=== PATIENT | male | born 1955 | race Hispanic/Latino ===

== ENCOUNTER 2017-12-26 14:41 | Outpatient (CLI) | payer BC, OTHER ==
[~2017-12-26 14:41] MED LIST: Gadobenate Dimeglumine 529 MG/1 ML (20ML VIAL) ONE
[2017-12-26 15:28] LABS: Estimated GFR-MDRD - POC Greater than 90
--- NOTE | 2017-12-27 15:54 | MRI ---
MRI PELVIS WITH AND WITHOUT CONTRAST: (Prostate protocol) Date: 12/26/17 HISTORY: Elevated PSA. COMPARISON: None. The last biopsy seen on the patient's medical record are all benign biopsies from 2014. TECHNIQUE: Multiplanar, multisequence MRI pelvis performed prior to and after the intravenous administration of contrast using prostate protocol. The exam was reviewed at an independent 3D workstation. FINDINGS: Prostate: The prostate measures 5.1 x 4.8 x 6.2 cm, for a volume of 74 mL. Peripheral Zone: There are no abnormal areas of diffusion restriction of the peripheral zone. Transitional Zone: There is a total of 4 regions of interest: JOSEFINA 1 is within the peripheral zone, volume of 1.2 mL, measuring 1.3 x 0.0 x 1.1 cm. The base is in t he mid gland at 9 o'clock. JOSEFINA 2 is within the left transitional zone, 3 o'clock, measuring 1.2 x 0.7 cm, for a volume of 0.62 m L. JOSEFINA 3 is within the right transitional zone, at the mid gland, at 11 o'clock, measuring 0.9 x 0.6 x 0 .7 cm. JOSEFINA 4 is within the transitional zone at the base, 6-7 o'clock, measuring 1.7 x 1.2 x 0.7 cm. Neurovascular Bundles: Intact. Seminal Vesicles: Intact. Urinary Bladder: Intact. On the T1-weighted imaging sequence, there are no abnormal areas of marrow signal loss to suggest met astatic disease. Intrapelvic Soft Tissues: Unremarkable. IMPRESSION: PI-RADS 5: Highly Likely (Clinically significant prostate cancer is highly likely to be present.) Th ere is extensive multifocal tumor throughout the transitional zone. The regions of interest are marke d on the DynaCAD study. No evidence for extraprostatic extension, neurovascular bundle invasion, loc al regional adenopathy, or osseous metastatic disease. POS: [facility]
== END 2017-12-26 14:42 | disposition home or self-care (01) ==
LOC: TBSIIMAG 14:41
PROVIDERS: ATTEND Urology
DX: R97.20 Elevated prostate specific antigen [PSA] (principal); D49.59 Neoplasm of unspecified behavior of other genitourinary organ
CPT/HCPCS: 72197; 82565; A9579

== ENCOUNTER 2018-01-23 11:44 | Outpatient (CLI) | payer BC ==
--- NOTE | 2018-01-23 13:25 | RAD ---
CHEST TWO VIEWS: History: Pre op. Comparison: None. FINDINGS: Lungs are clear. No pneumothorax or effusion. Cardiac silhouette and mediastinal contours are within normal limits. IMPRESSION: No acute intrathoracic abnormality. POS: [facility]
[2018-01-23 13:26] LABS: Hemoglobin 15.8 g/dL (14.0-18.0); Mean Corpuscular HGB CONC 33.2 g/dL (32.0-36.0); Mean Corpuscular Volume 93.2 fL (78.0-98.0); Mean Platelet Volume 9.4 fL (7.4-10.4); Platelet Count 270 thou/uL (130-400); RBC Distribution Width 12.2 % (11.5-14.5); Red Blood Cell (RBC) Count 5.09 mill/uL (4.70-6.10)
[2018-01-23 13:28] LABS: Bilirubin Negative (Negative); Blood, Urine Negative (Negative); Clarity CLEAR (Clear); Glucose, Urine (Dipstick) Negative (Negative); Leukocyte Negative (Negative); Nitrite Negative (Negative); Protein, Urine (Dipstick) Negative (Neg-Trace); Specific Gravity, Urine 1.003 (1.002-1.036); Urobilinogen 0.2 mg/dL (0.2-1.0)
[2018-01-23 13:30] LABS: PTT 28.8 SEC (22.9-36.1)
[2018-01-23 13:31] LABS: Bacteria/HPF None Seen HPF (None Seen); Hyaline Casts/LPF 0-3 HYALINE CAST LPF (0-3 Hyaline); RBC/HPF 0-3 HPF (0-3); Squamous Epithelial None Seen HPF (0-3); WBC/HPF None Seen HPF (0-3)
[2018-01-23 13:49] LABS: Anion Gap 17 mmol/L (10-20); BUN (Urea Nitrogen) 12 mg/dL (8.4-25.7); Calc. Creatinine Clearance 0 mL/min (70-130); Calcium 10.2 mg/dL (7.8-10.44); Carbon Dioxide 22 mmol/L (22-29); Chloride 105 mmol/L (98-107); Estimated GFR-MDRD Greater than 90; Glucose 90 mg/dL (70-105); Potassium 5.2 mmol/L (3.5-5.1); Sodium 139 mmol/L (136-145)
--- NOTE | 2018-01-24 07:54 | EKG ---
Test Reason : Blood Pressure : / mmHG Vent. Rate : 084 BPM Atrial Rate : 084 BPM P-R Int : 158 ms QRS Dur : 082 ms QT Int : 348 ms P-R-T Axes : 062 048 025 degrees QTc Int : 411 ms Normal sinus rhythm Normal ECG No previous ECGs available Confirmed by SHE KAISER ([id number]) on 01/24/2018 7:54:21 AM Referred By: Germain Valdes Confirmed By:SHE KAISER
== END 2018-01-23 11:45 | disposition home or self-care (01) ==
LOC: LABBT 11:44
PROVIDERS: ATTEND Urology
DX: Z01.818 Encounter for other preprocedural examination (principal); R97.20 Elevated prostate specific antigen [PSA]
CPT/HCPCS: 71046; 80048; 81001; 85027; 85610; 85730; 93005; 93010

== ENCOUNTER 2018-02-07 08:22 | Day surgery (SDC) | payer BC ==
[2018-01-23 12:12] VITALS: BMI 25.7
[2018-02-07] MEDS ORDERED: MEROPENEM 1 GM/50 ML 1 GM in Premix Bag 1 BAG IVPB SCH (08:45)
[2018-02-07] MEDS ORDERED: Fentanyl 100 MCG/2 ML VIAL ONE (11:30)
[2018-02-07] MEDS ORDERED: Lidocaine 1% (PF) 30 ML VIAL ONE (11:38)
--- NOTE | 2018-02-07 13:52 | OP ---
DATE OF SERVICE: 02/07/2018 PREOPERATIVE DIAGNOSES: 1. Mr. Vigil is a 62-year-old male with history of elevated PSA, status post [address] Saenz in the past. Status post saturation biopsy [address] Saenz. Pathology at that time demonstrating right mid-grade high prostatic intraepithelial neoplasia. 2. Persistent elevated PSA of 18 despite Avodart. 3. Recent MRI demonstrating 4 regions of interest. POSTOPERATIVE DIAGNOSES: 1. Mr. Vigil is a 62-year-old male with history of elevated PSA, status post [address] Saenz in the past. Status post saturation biopsy [address] Saenz. Pathology at that time demonstrating right mid-grade high prostatic intraepithelial neoplasia. 2. Persistent elevated PSA of 18 despite Avodart. 3. Recent MRI demonstrating 4 regions of interest. PROCEDURES: MRI UroNav fusion biopsy. Standard 12 core, plus target biopsy of 4 regions of interest. SURGEON: Shaunna Kay D.O. ANESTHESIA: LMA. COMPLICATIONS: None apparent. DISPOSITION: To recovery room in stable condition. 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 As noted above, he had 3 prior biopsies in which he underwent saturation biopsy 2014 demonstrating no evidence of malignancy, volume 90 grams; however, one focus of high-grade PIN. He presented with a PSA of 12 with baseline PSA variable from 10-13. I did initiate him on Avodart 08/2017 due to significant enlargement of prostate on CT and then a prior ultrasound volume of 90 grams. After Avodart was initiated, PSA did not decrease; however, increased to 18. As I had concern regarding compensated PSA on 5 alpha reductase inhibitor, I informed the patient to proceed with MRI fusion biopsy. MRI of the pelvis with routine admit demonstrated approximately 74 gram prostate, there was a component of intravesical median lobe, and four regions of interest. He presents today for MRI fusion biopsy. Risks and complications of the procedure was reviewed with him in detail including, but not limited to, bleeding, pain, infection, injury to adjacent organs, urosepsis. I informed him regarding possibility of secondary procedure due to protracted bleeding. Moreover, ongoing need for surveillance despite negative malignancy if none found was reviewed with him in detail. DESCRIPTION OF THE PROCEDURE: After an informed consent was signed, the patient was taken to the operating room. The patient was placed in supine position and LMA anesthesia was administered. Broad-spectrum antibiotics were provided with meropenem based on Cipro rectal swab. Therefore, meropenem was provided. He has been provided Augmentin one day prior to prostate biopsy based on Cipro resistance. Patient was then placed in left lateral decubitus position and using end-firing transrectal ultrasound probe, we performed a standard volume study. His urethral length measured 5.1 with a 5.4, height of 4.1 for a volume of 61 grams. At this time, we performed an MRI fusion of the regions of interest with the ultrasound. we obtained specimen from the 4 regions of interest. I obtained 3 specimens from region of ROI1, 3 from ROI2, 2 from ROI3 and ROI4. Subsequently, we then performed a 12-standard core uneventfully. He tolerated the procedure well and transported to the recovery room in stable condition. His MARGUERITE intraoperatively demonstrated no discrete nodularity of concern. He will follow up with me in 2-3 weeks to review pathology. He is discharged with Augmentin 500 mg 1 p.o. b.i.d. x7 days, Colace 100 mg 1 p.o. b.i.d. p.r.n. He is instructed to continue his Avodart, Flomax. I also encouraged him to take Flomax b.i.d. until followup appointment as I do anticipate postoperative swelling of his prostate. Everett catheter immediately postop as there was some blood at the meatus which can be anticipated. There was no significant blood clots within the bladder itself. Therefore, Everett catheter was removed. He is to be discharged after he voids on his own. If unable to void, indwelling urethral Everett catheter will be placed. SHINE
[2018-02-07] MEDS ORDERED: Phenazopyridine HCl 97.5 MG TABLET ONE (14:21)
[2018-02-07] MEDS ORDERED: Tamsulosin HCl 0.4 MG CAP ONE (15:10)
[2018-02-07] MEDS ORDERED: PHENYLEPHRINE-NS 100 MCG/ML 10 ML SYRINGE ONE (17:24)
[2018-02-07] MEDS ORDERED: ePHEDrine/0.9% NaCl/PF SYRINGE 50 mg/10 ml ONE (17:24)
[2018-02-07] MEDS ORDERED: PROPOFOL 200 MG/20 ML VIAL ONE (17:24)
== END 2018-02-07 16:22 | disposition home or self-care (01) ==
LOC: SDC 08:22
PROVIDERS: ATTEND Urology
PROC: 0VB03ZX Excision of Prostate, Percutaneous Approach, Diagnostic (ICD-10-PCS; principal; 2018-02-07)
DX: N41.1 Chronic prostatitis (principal); N42.89 Other specified disorders of prostate; N40.1 Benign prostatic hyperplasia with lower urinary tract symptoms; R35.1 Nocturia; N52.9 Male erectile dysfunction, unspecified; E78.5 Hyperlipidemia, unspecified; I10 Essential (primary) hypertension; F32.9 Major depressive disorder, single episode, unspecified; Z79.899 Other long term (current) drug therapy; Z88.8 Allergy status to other drugs, medicaments and biological substances; Z98.890 Other specified postprocedural states
CPT/HCPCS: 51798; 88305; J2001; J2185; J2704; J3010

== ENCOUNTER 2018-07-18 12:48 | Outpatient (CLI) | payer BC ==
--- NOTE | 2018-07-18 13:28 | ULT ---
Exam: Testicular ultrasound HISTORY: Right testicular swelling COMPARISON: None TECHNIQUE: Sagittal and transverse imaging of the left and right hemiscrotum are performed. Testicula r Doppler is performed with grayscale, color-flow, Doppler imaging and spectral waveform analysis. FINDINGS: Right hemiscrotum: Testicle: Homogeneous echotexture. No intratesticular masses. Right testicle measurements: 4.6 x 2.3 x 3.3 cm Right epididymis: There appears to be a 0.5 x 0.5 x 0.6 cm fantasma epididymal cysts. Right epididymis measurements: 1.0 x 1.7. 0.5 cm x 0.3 cm extra-articular testicular isoechoic focus. Hydrocele: Complex fluid in the right hemiscrotum. Left hemiscrotum: Left testicle: Homogeneous echotexture. No intratesticular masses. Left testicle measurements: 2.8 x 2.7 x 5.1 cm Left epididymis: Normal echotexture. Left epididymis measurements:1.2 x 0.8 x 0.6 centimeters Hydrocele: Small simple hydrocele is present. Testicular Doppler: There is symmetric vascular flow to the left and right testicle. . IMPRESSION: 1. Complex right sided hydrocele. Small simple left-sided hydrocele. 2. Right epididymal cysts. Extratesticular echogenic focus, nonspecific. 3. No evidence of intratesticular mass. However, there is a isoechoic structure adjacent to the right testicle of uncertain significance and etiology.
== END 2018-07-18 12:49 | disposition home or self-care (01) ==
LOC: BICULT 12:48
PROVIDERS: ATTEND Urology
DX: N50.89 Other specified disorders of the male genital organs (principal); N43.3 Hydrocele, unspecified; N50.3 Cyst of epididymis; R93.811 Abnormal radiologic findings on diagnostic imaging of right testicle
CPT/HCPCS: 76870; 93976

== ENCOUNTER 2019-04-05 12:20 | Outpatient (CLI) | payer BC ==
--- NOTE | 2019-04-05 13:01 | ULT ---
US Renal Bilateral STANDARD: 04/05/2019 12:00 AM CLINICAL HISTORY: Nocturia. STUDY: Renal ultrasound COMPARISON: None. FINDINGS: Right kidney: Echogenicity: Normal. Masses/cysts: Anechoic cysts measuring up to 1.7 cm in size. Hydronephrosis: None. Calcifications: None. Length: 9.8 cm Left kidney: Echogenicity: Normal. Masses/cysts: Small cyst measuring 7 mm in size. Hydronephrosis: None. Calcifications: None. Length: 10.3 cm Limited visualization of the urinary bladder is unremarkable. IMPRESSION: Bilateral renal cysts
== END 2019-04-05 12:21 | disposition home or self-care (01) ==
LOC: BICULT 12:20
PROVIDERS: ATTEND Urology
DX: N43.3 Hydrocele, unspecified (principal); R35.1 Nocturia; N28.1 Cyst of kidney, acquired; Z87.440 Personal history of urinary (tract) infections
CPT/HCPCS: 76770

== ENCOUNTER 2020-11-09 09:22 | Outpatient (CLI) | payer BC ==
[2020-03-06 09:39] LABS: Bilirubin Neg (Negative); Blood, Urine Negative (Negative); Clarity Clear (Clear); Glucose, Urine (Dipstick) Normal (Negative); Ketone, Urine 5 mg/dL (Negative); Leukocyte Negative (Negative); Nitrite Negative (Negative); Protein, Urine (Dipstick) 30 mg/dl (Neg-Trace); Urobilinogen Normal mg/dL (Less than 2)
[2020-03-06 10:01] LABS: Hemoglobin 15.5 g/dL (14.0-18.0); Mean Corpuscular HGB CONC 33.1 G/DL (32.0-36.0); Mean Corpuscular Hemoglobin 30.4 PG (27.0-33.0); Mean Corpuscular Volume 91.8 fl (80.0-100.0); Mean Platelet Volume 10.8 fl (7.4-10.4); Platelet Count 225 10x3/uL (130-400); RBC Distribution Width 12.8 % (11.5-14.5); White Blood Cell (WBC) Count 5.9 10x3/uL (4.5-11.0)
[2020-03-06 10:08] LABS: ALT (SGPT) 29 U/L (8-55); AST (SGOT) 29 U/L (5-34); Albumin 4.6 g/dL (3.4-4.8); Alkaline Phosphatase 86 U/L (40-110); Anion Gap 14 mmol/L (10-20); BUN (Urea Nitrogen) 10 mg/dL (8.4-25.7); Bilirubin, Total 0.5 mg/dL (0.2-1.2); Calc. Creatinine Clearance 0 mL/min (70-130); Calcium 9.1 mg/dL (7.8-10.44); Carbon Dioxide 28 mmol/L (23-31); Chloride 100 mmol/L (98-107); Cholesterol 177 mg/dl (< 200 Desired); Globulin 2.9 g/dL (2.4-3.5); Glucose 105 mg/dL (80-115); HDL Cholesterol 44 mg/dL (>60 Neg Risk); LDL Cholesterol, Calculated 107 mg/dL; Potassium 4.5 mmol/L (3.5-5.1); Protein, Total 7.5 g/dL (5.8-8.1); Sodium 137 mmol/L (136-145); Triglycerides 129 mg/dL (Less than 150)
[2020-03-06 10:14] LABS: Bacteria/HPF 1+ HPF (None Seen); RBC/HPF 0-3 HPF (0-3); WBC/HPF 0-3 HPF (0-3)
[2020-03-06 10:20] LABS: PTT 30.5 sec (22.0-33.0); Prothrombin Time 10.2 sec (9.5-12.1)
[2020-03-07 10:40] LABS: SARS-CoV-2 by NAA DETECTED (NotDetected)
[2020-03-07 10:42] LABS: SARS-CoV-2 MS2 Positive; SARS-CoV-2 N Gene Positive; SARS-CoV-2 S Gene Positive; SARS-CoV-2 orf1ab Positive
[2020-11-09 11:30] LABS: Hemoglobin 14.3 g/dL (13.5-17.5); Mean Corpuscular HGB CONC 33.2 g/dL (32.0-36.0); Mean Corpuscular Hemoglobin 30.8 pg (27.0-33.0); Mean Corpuscular Volume 92.7 fl (81.2-95.1); Mean Platelet Volume 11.5 fl (7.4-10.4); Platelet Count 241 10x3/uL (150-450); RBC Distribution Width 13.2 % (11.5-14.5); Red Blood Cell (RBC) Count 4.65 10x6/uL (4.32-5.72); White Blood Cell (WBC) Count 6.5 10x3/uL (3.5-10.5)
[2020-11-09 11:51] LABS: INR-International Normal Ratio 0.9; Prothrombin Time 10.4 sec (9.5-12.1)
[2020-11-09 11:52] LABS: Anion Gap 12 mmol/L (10-20); BUN (Urea Nitrogen) 14 mg/dL (8.4-25.7); Calc. Creatinine Clearance 0 mL/min (70-130); Calcium 9.8 mg/dL (7.8-10.44); Carbon Dioxide 26 mmol/L (23-31); Chloride 108 mmol/L (98-107); Glucose 102 mg/dL (80-115); Potassium 4.4 mmol/L (3.5-5.1); Sodium 142 mmol/L (136-145)
[2020-11-09 12:11] LABS: Bilirubin Neg (Negative); Blood, Urine Negative (Negative); Clarity Clear (Clear); Glucose, Urine (Dipstick) 250 mg/dL (Negative); Ketone, Urine Negative (Negative); Leukocyte Negative (Negative); Nitrite Negative (Negative); Protein, Urine (Dipstick) Negative (Neg-Trace); Urobilinogen Normal mg/dL (Less than 2)
[2020-11-09 12:24] LABS: Bacteria/HPF None Seen HPF (None Seen); RBC/HPF 0-3 HPF (0-3); Squamous Epithelial None Seen HPF (0-3); WBC/HPF None Seen HPF (0-3)
== END 2020-11-09 09:23 ==
LOC: LABBT 09:22
PROVIDERS: ATTEND Urology
DX: Z01.818 Encounter for other preprocedural examination (principal); N40.0 Benign prostatic hyperplasia without lower urinary tract symptoms; R97.20 Elevated prostate specific antigen [PSA]
CPT/HCPCS: 80048; 80053; 80061; 81001; 85027; 85610; 85730; 87086; 93005; 93010; U0003

== ENCOUNTER 2020-11-20 07:49 | Outpatient (CLI) | payer BC | END 2020-11-20 07:50 | disposition home or self-care (01) | LOC: LABBT 07:49 | PROVIDERS: ATTEND Urology | DX: Z01.812 Encounter for preprocedural laboratory examination (principal); Z53.9 Procedure and treatment not carried out, unspecified reason | CPT/HCPCS: 86850; 86900; 86901; U0003; U0005 ==

== ENCOUNTER 2020-11-23 05:50 | Observation (INO) | payer BC ==
[2020-11-20 18:00] LABS: SARS-CoV-2 PCR by NAA Not Detected (NotDetected)
[2020-11-23] MEDS ORDERED: Levofloxacin 500 mg/D5W 100 ml Premix Bag ONE (06:08)
[2020-11-23] MEDS ORDERED: Midazolam HCl 2 mg/2 ml Vial ONE (07:11)
[2020-11-23] MEDS ORDERED: Fentanyl 250 MCG/5 ML VIAL ONE (07:11)
[2020-11-23] MEDS ORDERED: Iothalamate Meglumine 60% 30 ML VIAL FS ONE (07:20)
[2020-11-23] MEDS ORDERED: ePHEDrine 50 MG/ML VIAL ONE (07:30)
[2020-11-23] MEDS ORDERED: Glycopyrrolate 0.2 MG/ML 5 ML SYRINGE ONE (07:30)
[2020-11-23] MEDS ORDERED: PROPOFOL 200 MG/20 ML VIAL ONE (07:30)
[2020-11-23] MEDS ORDERED: diphenhydrAMINE 50 MG/ML VIAL ONE (07:30)
[2020-11-23] MEDS ORDERED: Ondansetron PF 4 MG/2 ML Vial ONE (07:30)
[2020-11-23] MEDS ORDERED: Lidocaine 1% PF 5 ML VIAL ONE (07:30)
[2020-11-23] MEDS ORDERED: Rocuronium Bromide 10 MG/ML (10ML VIAL) ONE (07:30)
[2020-11-23] MEDS ORDERED: PHENYLEPHRINE-NS 100 MCG/ML 10 ML SYRINGE ONE (07:30)
[2020-11-23] MEDS ORDERED: HYDROmorphone 2 MG/ML VIAL SLOW IVP PRN (08:52)
[2020-11-23] MEDS ORDERED: Meperidine HCl/PF 25 MG/ML VIAL SLOW IVP PRN (08:52)
[2020-11-23] MEDS ORDERED: Promethazine HCl 25 MG/ML VIAL IM PRN (08:52)
[2020-11-23] MEDS ORDERED: Ondansetron HCl/PF 4 MG/2 ML Vial IVP PRN (08:52)
[2020-11-23] MEDS ORDERED: Promethazine HCl 25 MG/ML VIAL IVPB PRN (08:52)
[2020-11-23] MEDS ORDERED: Morphine 2 MG/ML VIAL SLOW IVP PRN (09:27)
[2020-11-23] MEDS ORDERED: Mag-Al 1200 mg/1200 mg/30 ML UDCUP PO PRN (09:27)
[2020-11-23] MEDS ORDERED: Dextrose 50% Abboject 50 ML SYRINGE SLOW IVP PRN (09:27)
[2020-11-23] MEDS ORDERED: diphenhydrAMINE 50 MG/ML VIAL IVP PRN (09:27)
[2020-11-23] MEDS ORDERED: Zolpidem Tartrate 5 MG TAB PO PRN (09:27)
[2020-11-23] MEDS ORDERED: Dextrose 5% in Water 1,000 ML IV PRN (09:27)
[2020-11-23] MEDS ORDERED: hydrALAZINE 20 MG/ML VIAL SLOW IVP PRN ×2 (09:27)
[2020-11-23] MEDS ORDERED: Insulin Regular 300 UNITS/3 ML VIAL SC PRN (09:27)
[2020-11-23] MEDS ORDERED: Acetaminophen 500 MG TAB PO PRN (09:27)
[2020-11-23] MEDS ORDERED: HYDROcodone/Acetaminophen 5/325 mg Tablet PO PRN ×2 (09:27)
[2020-11-23] MEDS ORDERED: Morphine 4 MG/ML VIAL SLOW IVP PRN (09:27)
[2020-11-23] MEDS ORDERED: Oxybutynin 5 MG TAB PO PRN (09:27)
[2020-11-23] MEDS ORDERED: Ondansetron PF 4 MG/2 ML Vial IVP PRN (09:27)
[2020-11-23] MEDS ORDERED: Phenazopyridine HCl 100 MG TAB PO PRN (09:32)
[2020-11-23] MEDS ORDERED: Oxybutynin 5 MG TAB ONE (10:06)
[2020-11-23] MEDS ORDERED: Phenazopyridine HCl 100 MG TAB ONE (10:06)
[2020-11-23] MEDS: Sodium Chloride 0.9% 1,000 ML IV SCH ×2 (10:15→18:06)
[2020-11-23] MEDS ORDERED: cefTRIAXone\\ROCEPHIN 1 GM VIAL ONE (11:48)
[2020-11-23] MEDS ORDERED: Sodium Chloride 0.9% 100 ML ONE (11:49)
[2020-11-23] MEDS: cefTRIAXone\\ROCEPHIN 1 GM in Sodium Chloride 0.9% 100 ML IVPB SCH (11:52)
[2020-11-23 12:47] LABS: #Lymphocytes 1.3 thou/uL (1.20-3.40); #Monocytes 0.5 thou/uL (0.11-0.59); #Neutrophils 10.9 thou/uL (1.40-6.50); %Basophils 0.3 % (0.0-1.0); %Eosinophils 0.1 % (0.0-10.0); %Lymphocytes 10.1 % (21.0-51.0); %Neutrophils 85.4 % (42.0-75.0); Hemoglobin 14.7 g/dL (14.0-18.0); Mean Corpuscular HGB CONC 35.1 g/dL (32.0-36.0); Mean Corpuscular Hemoglobin 33.3 pg (27.0-31.0); Mean Corpuscular Volume 94.7 fL (78.0-98.0); Mean Platelet Volume 9.2 fL (7.4-10.4); Platelet Count 195 thou/uL (130-400); RBC Distribution Width 12.1 % (11.5-14.5); Red Blood Cell (RBC) Count 4.41 mill/uL (4.70-6.10); White Blood Cell (WBC) Count 12.7 thou/uL (4.8-10.8)
[2020-11-23 13:09] LABS: Anion Gap 12 mmol/L (10-20); BUN (Urea Nitrogen) 11 mg/dL (8.4-25.7); Calc. Creatinine Clearance 100 mL/min (70-130); Calcium 8.8 mg/dL (7.8-10.44); Carbon Dioxide 26 mmol/L (23-31); Chloride 105 mmol/L (98-107); Glucose 120 mg/dL (80-115); Sodium 139 mmol/L (136-145)
[2020-11-23 13:40] VITALS: BMI 26.6
[2020-11-23] MEDS: Docusate 100 MG CAP PO SCH (20:18)
[2020-11-23] MEDS: Famotidine/PF 20 mg/2ml Vial SLOW IVP SCH (20:18)
[2020-11-24] MEDS: Sodium Chloride 0.9% 1,000 ML IV SCH ×2 (02:15→08:57)
[2020-11-24 05:39] LABS: #Monocytes 0.7 thou/uL (0.11-0.59); #Neutrophils 6.5 thou/uL (1.40-6.50); %Basophils 0.1 % (0.0-1.0); %Eosinophils 0.5 % (0.0-10.0); %Neutrophils 70.3 % (42.0-75.0); Hemoglobin 13.5 g/dL (14.0-18.0); Mean Corpuscular HGB CONC 33.8 g/dL (32.0-36.0); Mean Corpuscular Hemoglobin 31.7 pg (27.0-31.0); Mean Corpuscular Volume 93.9 fL (78.0-98.0); Platelet Count 198 thou/uL (130-400); Red Blood Cell (RBC) Count 4.25 mill/uL (4.70-6.10); White Blood Cell (WBC) Count 9.2 thou/uL (4.8-10.8)
[2020-11-24 06:05] LABS: Anion Gap 9 mmol/L (10-20); BUN (Urea Nitrogen) 10 mg/dL (8.4-25.7); Calc. Creatinine Clearance 91 mL/min (70-130); Calcium 8.3 mg/dL (7.8-10.44); Carbon Dioxide 25 mmol/L (23-31); Chloride 108 mmol/L (98-107); Glucose 104 mg/dL (80-115); Sodium 138 mmol/L (136-145)
[2020-11-24] MEDS: Docusate 100 MG CAP PO SCH (08:43)
[2020-11-24] MEDS: Famotidine/PF 20 mg/2ml Vial SLOW IVP SCH (08:43)
[2020-11-24] MEDS: cefTRIAXone\\ROCEPHIN 1 GM in Sodium Chloride 0.9% 100 ML IVPB SCH (08:52)
[2020-11-24] MEDS ORDERED: Dutasteride 0.5 MG CAP PO SCH (09:00)
[2020-11-24] MEDS ORDERED: Simvastatin 10 MG TAB PO SCH (09:00)
[2020-11-24] MEDS ORDERED: Multivit, Therapeutic 1 TAB PO SCH (09:00)
[2020-11-24] MEDS ORDERED: Tamsulosin HCl 0.4 MG CAP PO SCH ×2 (09:00)
[2020-11-24] MEDS ORDERED: Lisinopril 5 MG TAB PO SCH (09:00)
[2020-11-24 17:12] VITALS: BP 156/88; TEMP 97.9
[2020-11-25] MEDS ORDERED: metFORMIN 500 MG TAB PO SCH (08:00)
== END 2020-11-24 17:25 | disposition home or self-care (01) ==
LOC: SDC 05:50 → SURG A 09:27
PROVIDERS: ADMIT Urology; ATTEND Urology
PROC: 0VT08ZZ Resection of Prostate, Via Natural or Artificial Opening Endoscopic (ICD-10-PCS; principal; 2020-11-23)
DX: N40.1 Benign prostatic hyperplasia with lower urinary tract symptoms (principal); R33.8 Other retention of urine; N13.8 Other obstructive and reflux uropathy; R35.1 Nocturia; R97.20 Elevated prostate specific antigen [PSA]; E78.5 Hyperlipidemia, unspecified; I10 Essential (primary) hypertension; R73.03 Prediabetes; N52.9 Male erectile dysfunction, unspecified; G47.33 Obstructive sleep apnea (adult) (pediatric); Z79.84 Long term (current) use of oral hypoglycemic drugs; Z79.899 Other long term (current) drug therapy; Z86.16 Personal history of COVID-19; Z87.440 Personal history of urinary (tract) infections
CPT/HCPCS: 36415; 36416; 80048; 85025; 86850; 86900; 86901; 88305; 96365; 96375; 96376; G0378; J0696; J1200; J1956; J2250; J2405; J2704; J3010; J3490; S0028; U0003; U0005

== ENCOUNTER 2021-03-19 16:06 | Outpatient (CLI) | payer BC ==
[2021-03-19 18:14] LABS: Hemoglobin 15.8 g/dL (13.5-17.5); Mean Corpuscular HGB CONC 33.6 g/dL (32.0-36.0); Mean Corpuscular Volume 89.2 fl (81.2-95.1); Platelet Count 282 10x3/uL (150-450); RBC Distribution Width 12.8 % (11.5-14.5); Red Blood Cell (RBC) Count 5.27 10x6/uL (4.32-5.72); White Blood Cell (WBC) Count 9.7 10x3/uL (3.5-10.5)
[2021-03-19 18:26] LABS: Anion Gap 15 mmol/L (10-20); BUN (Urea Nitrogen) 12 mg/dL (8.4-25.7); Calc. Creatinine Clearance 0 mL/min (70-130); Calcium 10.1 mg/dL (7.8-10.44); Carbon Dioxide 24 mmol/L (23-31); Chloride 105 mmol/L (98-107); Glucose 113 mg/dL (80-115); INR-International Normal Ratio 0.9; PTT 25.4 sec (22.0-33.0); Potassium 4.4 mmol/L (3.5-5.1); Prothrombin Time 10.3 sec (9.5-12.1); Sodium 140 mmol/L (136-145)
[2021-03-19 18:52] LABS: Bilirubin Neg (Negative); Blood, Urine Negative (Negative); Glucose, Urine (Dipstick) Normal (Negative); Ketone, Urine Negative (Negative); Leukocyte Negative (Negative); Nitrite Negative (Negative); Protein, Urine (Dipstick) Negative (Neg-Trace); Urobilinogen Normal mg/dL (Less than 2)
[2021-03-19 18:56] LABS: Clarity Clear (Clear)
[2021-03-19 19:01] LABS: Bacteria/HPF None Seen HPF (None Seen); RBC/HPF 0-3 HPF (0-3); Squamous Epithelial 0-3 HPF (0-3); WBC/HPF 0-3 HPF (0-3)
[2021-03-20 18:14] LABS: SARS-CoV-2 PCR by NAA Not Detected (NotDetected)
== END 2021-03-19 16:07 | disposition home or self-care (01) ==
LOC: LABBT 16:06
PROVIDERS: ATTEND Urology
DX: Z01.818 Encounter for other preprocedural examination (principal); R97.20 Elevated prostate specific antigen [PSA]; N40.1 Benign prostatic hyperplasia with lower urinary tract symptoms; R35.1 Nocturia; R73.09 Other abnormal glucose; Z87.440 Personal history of urinary (tract) infections; R81 Glycosuria; N52.9 Male erectile dysfunction, unspecified; N99.111 Postprocedural bulbous urethral stricture, male; Z90.79 Acquired absence of other genital organ(s); Z20.822 Contact with and (suspected) exposure to COVID-19
CPT/HCPCS: 80048; 81001; 85027; 85610; 85730; 87086; 93005; 93010; U0003; U0005

== ENCOUNTER 2021-03-24 07:18 | Day surgery (SDC) | payer BC ==
[2021-03-23 10:37] VITALS: BMI 26.1
[2021-03-24] MEDS ORDERED: Levofloxacin 500 mg/D5W 100 ml Premix Bag ONE (09:57)
[2021-03-24] MEDS ORDERED: Iothalamate Meglumine 60% 50 ML VIAL FS ONE (11:06)
[2021-03-24] MEDS ORDERED: Fentanyl 100 MCG/2 ML VIAL ONE (11:19)
[2021-03-24] MEDS ORDERED: PROPOFOL 200 MG/20 ML VIAL ONE (11:35)
[2021-03-24] MEDS ORDERED: Lidocaine 1% PF 5 ML VIAL ONE (11:35)
[2021-03-24] MEDS ORDERED: Phenazopyridine HCl 100 MG TAB ONE ×2 (13:02)
[2021-03-24] MEDS ORDERED: Oxybutynin 5 MG TAB ONE (13:02)
== END 2021-03-24 13:55 | disposition home or self-care (01) ==
LOC: SDC 07:18
PROVIDERS: ATTEND Urology
PROC: BT1BZZZ Fluoroscopy of Bladder and Urethra (ICD-10-PCS; principal; 2021-03-24)
PROC: 0TND8ZZ Release Urethra, Via Natural or Artificial Opening Endoscopic (ICD-10-PCS; principal; 2021-03-24)
DX: N99.111 Postprocedural bulbous urethral stricture, male (principal); R97.20 Elevated prostate specific antigen [PSA]; N52.9 Male erectile dysfunction, unspecified; E78.5 Hyperlipidemia, unspecified; I10 Essential (primary) hypertension; R73.03 Prediabetes; Z79.84 Long term (current) use of oral hypoglycemic drugs; Z79.899 Other long term (current) drug therapy; Z88.8 Allergy status to other drugs, medicaments and biological substances
CPT/HCPCS: 74420; J1956; J2704; J3010; Q9961-U8

== ENCOUNTER 2021-06-10 11:14 | Outpatient (CLI) | payer BC ==
[2021-06-10 12:13] LABS: Bilirubin Neg (Negative); Blood, Urine Negative (Negative); Clarity Clear (Clear); Glucose, Urine (Dipstick) Normal (Negative); Ketone, Urine Negative (Negative); Leukocyte 25 (Negative); Nitrite Negative (Negative); Protein, Urine (Dipstick) 15 mg/dl (Neg-Trace); Urobilinogen Normal mg/dL (Less than 2)
[2021-06-10 12:17] LABS: Bacteria/HPF None Seen HPF (None Seen); RBC/HPF 0-3 HPF (0-3); Squamous Epithelial 0-3 HPF (0-3)
[2021-06-10 12:34] LABS: Hemoglobin 15.4 g/dL (13.5-17.5); Mean Corpuscular HGB CONC 33.5 g/dL (32.0-36.0); Mean Corpuscular Hemoglobin 30.3 pg (27.0-33.0); Mean Corpuscular Volume 90.6 fl (81.2-95.1); Mean Platelet Volume 11.7 fl (7.4-10.4); Platelet Count 253 10x3/uL (150-450); RBC Distribution Width 13.2 % (11.5-14.5); Red Blood Cell (RBC) Count 5.08 10x6/uL (4.32-5.72); White Blood Cell (WBC) Count 7.3 10x3/uL (3.5-10.5)
[2021-06-10 12:55] LABS: Anion Gap 15 mmol/L (10-20); BUN (Urea Nitrogen) 14 mg/dL (8.4-25.7); Calc. Creatinine Clearance 0 mL/min (70-130); Calcium 9.4 mg/dL (7.8-10.44); Carbon Dioxide 25 mmol/L (23-31); Chloride 104 mmol/L (98-107); Glucose 179 mg/dL (80-115); Potassium 4.6 mmol/L (3.5-5.1); Sodium 139 mmol/L (136-145)
[2021-06-10 23:53] LABS: SARS-CoV-2 PCR by NAA Not Detected (NotDetected)
== END 2021-06-10 11:15 | disposition home or self-care (01) ==
LOC: LABBT 11:14
PROVIDERS: ATTEND Urology
DX: Z01.818 Encounter for other preprocedural examination (principal); N35.914 Unspecified anterior urethral stricture, male; Z20.822 Contact with and (suspected) exposure to COVID-19
CPT/HCPCS: 80048; 81001; 85027; 87077; 87086; 87186; 93005; 93010; U0003; U0005

== ENCOUNTER 2021-06-15 06:29 | Day surgery (SDC) | payer BC ==
[2021-06-07 13:58] VITALS: BMI 26.6
[2021-06-15] MEDS ORDERED: Iothalamate Meglumine 60% 50 ML VIAL FS ONE (09:07)
[2021-06-15] MEDS ORDERED: Bupivacaine 0.25% HCL 30 ML VIAL ONE (09:07)
[2021-06-15] MEDS ORDERED: Fentanyl 250 MCG/5 ML VIAL ONE (09:14)
[2021-06-15] MEDS ORDERED: Midazolam HCl 2 mg/2 ml Vial ONE (09:14)
[2021-06-15] MEDS ORDERED: ceFAZolin 2 GM/Dextrose 50 ML IVPB ONE (09:24)
[2021-06-15] MEDS ORDERED: Dexamethasone 20 MG/5 ML VIAL ONE (09:29)
[2021-06-15] MEDS ORDERED: Lidocaine 1% PF 5 ML VIAL ONE (09:29)
[2021-06-15] MEDS ORDERED: PHENYLEPHRINE-NS 100 MCG/ML 10 ML SYRINGE ONE ×2 (09:29→10:44)
[2021-06-15] MEDS ORDERED: Ketorolac Tromethamine 30 MG/ML VIAL ONE ×2 (09:29→11:57)
[2021-06-15] MEDS ORDERED: PROPOFOL 200 MG/20 ML VIAL ONE (09:29)
[2021-06-15] MEDS ORDERED: Ondansetron PF 4 MG/2 ML Vial ONE (09:29)
[2021-06-15] MEDS ORDERED: ePHEDrine 50 MG/ML VIAL ONE (09:29)
== END 2021-06-15 13:32 | disposition home or self-care (01) ==
LOC: SDC 06:29
PROVIDERS: ATTEND Urology
PROC: 0VTTXZZ Resection of Prepuce, External Approach (ICD-10-PCS; principal; 2021-06-15)
PROC: 0TQD0ZZ Repair Urethra, Open Approach (ICD-10-PCS; principal; 2021-06-15)
DX: N35.914 Unspecified anterior urethral stricture, male (principal); N52.01 Erectile dysfunction due to arterial insufficiency; E78.5 Hyperlipidemia, unspecified; I10 Essential (primary) hypertension; R73.03 Prediabetes; Z79.84 Long term (current) use of oral hypoglycemic drugs; Z79.899 Other long term (current) drug therapy
CPT/HCPCS: 74018; 76000; J0690; J1100; J1885; J2250; J2405; J2704; J3010; J3490; Q9961-U8; S0020

== ENCOUNTER 2024-11-01 07:49 | Outpatient (CLI) | payer BC, MEDICARE ==
[2024-11-01 10:04] LABS: #Basophils 0.07 10x3/uL (0.0-0.2); #Eosinophils 0.13 10x3/uL (0.0-0.7); #Monocytes 0.47 10x3/uL (0.11-0.59); #Neutrophils 3.35 10x3/uL (1.40-6.50); %Basophils 1.1 % (0.0-1.0); %Eosinophils 2.1 % (0.0-10.0); %Lymphocytes 35.9 % (21.0-51.0); %Monocytes 7.5 % (0.0-10.0); %Neutrophils 53.2 % (42.0-75.0); Hematocrit 45.5 % (42.0-52.0); Hemoglobin 15.1 g/dL (14.0-18.0); Mean Corpuscular Hemoglobin 30.4 pg (27.0-31.0); Mean Corpuscular Volume 91.7 fL (78.0-98.0); Platelet Count 225 10x3/uL (130-400); Red Blood Cell (RBC) Count 4.96 mill/uL (4.70-6.10); White Blood Cell (WBC) Count 6.29 10x3/uL (4.8-10.8)
[2024-11-01 10:17] LABS: Anion Gap 13 mmol/L (10-20); BUN (Urea Nitrogen) 13 mg/dL (8.4-25.7); Calc. Creatinine Clearance 0 mL/min (70-130); Calcium 9.1 mg/dL (7.8-10.44); Carbon Dioxide 26 mmol/L (23-31); Chloride 108 mmol/L (98-107); Glucose 120 mg/dL (80-115); INR-International Normal Ratio 1.0; Potassium 4.1 mmol/L (3.5-5.1); Prothrombin Time 13.2 sec (12.0-14.7); Sodium 143 mmol/L (136-145)
[2024-11-01 10:18] LABS: Bacteria/HPF None Seen HPF (None Seen); Glucose, Urine (Dipstick) Normal (Negative); Leukocyte 25 Leu/uL (Negative); PTT 30.0 sec (22.9-36.1); Protein, Urine (Dipstick) Negative (Neg-Trace); RBC/HPF 0-3 HPF (0-3); Specific Gravity, Urine 1.024 (1.002-1.036)
== END 2024-11-01 07:50 | disposition home or self-care (01) ==
LOC: LABBT 07:49
PROVIDERS: ATTEND Urology
DX: Z01.818 Encounter for other preprocedural examination (principal); N35.914 Unspecified anterior urethral stricture, male
CPT/HCPCS: 80048; 81001; 85025; 85610; 85730; 87077; 87086; 87186; 93005; 93010

== ENCOUNTER 2024-11-08 12:40 | Outpatient (CLI) | payer BC, MEDICARE ==
[~2024-11-08 12:40] MED LIST changes: -Gadobenate Dimeglumine 529 MG/1 ML (20ML VIAL) ONE; +Iopamidol 370 76% 100 ML VIAL ONE
== END 2024-11-08 12:41 | disposition home or self-care (01) ==
LOC: CT 12:40
PROVIDERS: ATTEND Urology
DX: R97.20 Elevated prostate specific antigen [PSA] (principal); R31.0 Gross hematuria; N28.89 Other specified disorders of kidney and ureter; K57.30 Diverticulosis of large intestine without perforation or abscess without bleeding; R91.1 Solitary pulmonary nodule; R93.41 Abnormal radiologic findings on diagnostic imaging of renal pelvis, ureter, or bladder
CPT/HCPCS: 74178; Q9967

== ENCOUNTER 2024-11-13 05:53 | Day surgery (SDC) | payer BC, MEDICARE ==
[2024-11-01 08:52] VITALS: BMI 26.2
[2024-11-13] MEDS ORDERED: LevoFLOXacin D5W 500 mg (100 mL) BAG ONE (06:19)
[2024-11-13] MEDS ORDERED: cefTRIAXone (ROCEPHIN) 2 GM VIAL ONE (06:20)
[2024-11-13] MEDS ORDERED: PROPOFOL 20 ML ONE (07:09)
[2024-11-13] MEDS ORDERED: fentaNYL PF 100 MCG/2 ML SYRINGE ONE (07:37)
[2024-11-13] MEDS ORDERED: Ondansetron PF 4 MG/2 ML Vial ONE (07:55)
[2024-11-13] MEDS ORDERED: PHENYLEPHRINE-NS 100 MCG/ML 10 ML SYRINGE ONE (08:10)
[2024-11-13] MEDS ORDERED: Oxybutynin 5 MG TAB ONE (08:39)
== END 2024-11-13 10:20 | disposition home or self-care (01) ==
LOC: SDC 05:53
PROVIDERS: ATTEND Urology
DX: N40.1 Benign prostatic hyperplasia with lower urinary tract symptoms (principal); R35.1 Nocturia; N52.9 Male erectile dysfunction, unspecified; N28.1 Cyst of kidney, acquired; N48.89 Other specified disorders of penis; R97.20 Elevated prostate specific antigen [PSA]; R73.09 Other abnormal glucose; I10 Essential (primary) hypertension; E78.5 Hyperlipidemia, unspecified; F32.A Depression, unspecified; Z88.8 Allergy status to other drugs, medicaments and biological substances; Z79.899 Other long term (current) drug therapy
CPT/HCPCS: 76872; A4340; C1769; G0416; J0696; J1100; J1956; J2405; J2704